=== PATIENT | male | born 1955 ===

== ENCOUNTER 2016-08-11 07:24 | Day surgery (SDC) | payer OTHER ==
[2016-08-11] MEDS ORDERED: LIDOCAINE HCL 1% MPF SOL ONE (07:51)
[2016-08-11] MEDS ORDERED: PROPOFOL 500 MG/50 ML EMU IV ONE (07:51)
[2016-08-11 09:07] VITALS: O2SAT 95
[2016-08-11 09:25] VITALS: BP 121/64; PULSE 67; RESP 20; TEMP 96.6
== END 2016-08-11 09:30 | disposition home or self-care (01) | DRG 951 ==
LOC: SURG 07:24
PROVIDERS: ATTEND Surgery
DX: Z12.11 Encounter for screening for malignant neoplasm of colon (principal); D17.79 Benign lipomatous neoplasm of other sites
CPT/HCPCS: J2001; J2704